=== PATIENT | female | born 1945 | race Caucasian/White ===

== ENCOUNTER → 2016-06-19 | Outpatient (CLI) | payer MEDICARE, BC ==
[~2016-06-19] MED LIST: CHLO25TA2 PO; CLON0.5T PO; CT SWABBABLE VALVE TRANS SET 1 EA INFUS.SET MC ONE; IOHEXOL-350 100 ML VIAL IV ONE; IV NS 0.9% 250 ML IV ONE; METOPROLOL TARTRATE INJ 5 MG/5 ML AMPUL ONE; NEBI10TA2 PO; NITROGLYCERIN 4.9 GM SPRAY ONE; POTASSIUM SUPPLEMENT PO
[2016-06-19 11:32] LABS: ALBUMIN 3.6 g/dL (3.4-5.0); BILIRUBIN,TOTAL 0.2 mg/dL (0.2-1.0); CALCIUM, SERUM 9.2 mg/dL (8.5-10.1); CREATININE 0.8 mg/dL (0.6-1.3); POTASSIUM 3.3 mmol/L (3.5-5.1); TOTAL PROTEIN, SERUM 7.9 g/dL (6.4-8.2)
== END ==
LOC: CT 10:00
PROVIDERS: ATTEND Internal Medicine Interventional Cardiology
DX: I25.10 Atherosclerotic heart disease of native coronary artery without angina pectoris (principal); I10 Essential (primary) hypertension; R06.09 Other forms of dyspnea
CPT/HCPCS: 36415; 75574; 80053; 93005; J3490; J7050; Q9967

== ENCOUNTER 2017-07-30 17:48 | Inpatient (IN) | payer MEDICARE ==
[~2017-07-30] VITALS: Ht 167.6 cm; Wt 94.3 kg
[~2017-07-30 17:48] MED LIST changes: -CT SWABBABLE VALVE TRANS SET 1 EA INFUS.SET MC ONE; -IOHEXOL-350 100 ML VIAL IV ONE; -IV NS 0.9% 250 ML IV ONE; -METOPROLOL TARTRATE INJ 5 MG/5 ML AMPUL ONE; -NITROGLYCERIN 4.9 GM SPRAY ONE
--- NOTE | 2017-07-30 17:48 | NUR ---
CHRISTIANO RA 79 FROM AN URGENT CARE WHEN 12-LEAD EKG SHOWED RAPID AFIB AT 130. PLACED ON MONITOR. BOOKER PT.
[2017-07-30] MEDS ORDERED: IV NS 0.9% 500 ML BAG IV ONE (18:00)
--- NOTE | 2017-07-30 18:08 | NUR ---
LAC #20 IV ACCESS. BLOOD SAMPLE COLLECTED SENT TO LAB
--- NOTE | 2017-07-30 18:09 | NUR ---
URINE SAMPLE COLLECTED SENT TO LAB
[2017-07-30 18:15] LABS: BASOPHILS # (AUTO) 0.1 /CMM (0.0-0.2); BASOPHILS % (AUTO) 0.8 % (0.0-2.0); EOSINOPHILS # (AUTO) 0.2 /CMM (0.0-0.7); EOSINOPHILS % (AUTO) 1.5 % (0.0-6.0); HEMATOCRIT 40 % (33-45); LYMPHOCYTES # (AUTO) 3.1 /CMM (0.8-4.8); LYMPHOCYTES % (AUTO) 25.5 % (20.0-44.0); MEAN CORPUSCULAR HEMOGLOBIN 30 PG (26.0-33.0); MEAN CORPUSCULAR HGB CONC 35 g/dl (31.0-36.0); MEAN CORPUSCULAR VOLUME 84 fL (82-100); MONOCYTES # (AUTO) 0.6 /CMM (0.1-1.30); NEUTROPHILS # (AUTO) 8.1 /CMM (1.8-8.9); NEUTROPHILS % (AUTO) 67.2 % (43.0-81.0); PLATELET COUNT (AUTO) 396 /CMM (150-450); RDW COEFFICIENT OF VARIATION 13.4 (11.5-15.0); RED BLOOD CELL COUNT(AUTO) 4.74 MIL/uL (4.0-5.2); WHITE BLOOD COUNT (AUTO) 12.1 K/uL (4.3-11.0)
[2017-07-30 18:27] LABS: CALCIUM, SERUM 10.6 mg/dL (8.5-10.1); CARBON DIOXIDE 22 mmol/L (21-32); CHLORIDE 101 mmol/L (98-107); CREATININE 0.8 mg/dL (0.6-1.3); GLUCOSE 114 mg/dL (74-106); POTASSIUM 4.2 mmol/L (3.5-5.1); SODIUM SERUM 135 mmol/L (136-145); UREA NITROGEN, BLOOD 21 mg/dL (7-18)
[2017-07-30] MEDS ORDERED: ASPI-1169 PO (18:27)
[2017-07-30 18:40] LABS: B-TYPE NATRIURETIC PEPTIDE 3021 PG/ML (0-125)
[2017-07-30 18:41] LABS: THYROID STIMULATING HORMONE 1.567 uIU/mL (0.358-3.74)
[2017-07-30 18:42] LABS: TROPONIN I < 0.017 ng/mL (0.00-0.056)
[2017-07-30 19:02] LABS: INR 0.95 (0.85-1.15)
--- NOTE | 2017-07-30 19:13 | NUR ---
GAVE REPORT TO [facility] FOR [facility]
[2017-07-30] MEDS ORDERED: DILTIAZEM HCL 25 MG IV ONE (19:15)
[2017-07-30] MEDS ORDERED: DILTIAZEM HCL 25 MG IV IV ONE (19:30)
--- NOTE | 2017-07-30 19:37 | NUR ---
DR.RUBIN NELSON Addendum: 07/30/17 at 1938 by ELIANE COTTON WEIGHER FOR
--- NOTE | 2017-07-30 20:21 | NUR ---
gave report to ATUL Thomas for LENCHO.
[2017-07-30] MEDS ORDERED: clonazePAM 0.5 MG TABLET PO PRN (20:30)
[2017-07-30] MEDS ORDERED: ACETAMINOPHEN 325 MG TABLET PO PRN (20:30)
[2017-07-30] MEDS ORDERED: DILTIAZEM HCL 25 MG IV IV PRN (20:30)
[2017-07-30] MEDS ORDERED: Z GUARD REMEDY 2 OZ OINT TP PRN (20:30)
[2017-07-30] MEDS ORDERED: MAG HYDROX/AL HYDROX/SIMETH 30 ML UDC PO PRN (20:30)
[2017-07-30] MEDS ORDERED: ONDANSETRON HCL/PF 4 MG/2 ML VIAL IVP PRN (20:30)
[2017-07-30] MEDS ORDERED: Medication Not On Formulary EA (Nebivolol Hcl (Bystolic) 20 MG) PO SCH (20:30)
[2017-07-30] MEDS ORDERED: MAGNESIUM HYDROXIDE 30 ML UDC PO PRN (20:30)
[2017-07-30] MEDS ORDERED: HYDROCODONE/APAP 5/325MG 1 EACH TABLET PO PRN (20:30)
--- NOTE | 2017-07-30 20:40 | NUR ---
ATUL/RN NOTES: ADMITTED AN 72 YRS OLD FEMALE FROM E.. VIA [facility] . PT. AMBULATED W/ STEADY GAIT TO ROOM 113-1. ON TELE MONITOR AFIB UNCONTROLLED 89. LAC # 20 SL PATENT AND INTACT W/ NO S/S OF INFECTION/INFILTRATION NOTED. PT.HAS BRUISE UNDER LEFT EYE. CONTINENT OF B/B. RA SAT. 98%. CALL LIGHT W/ REACH. WILL CONTINUE TO MONITOR.
[2017-07-30 20:48] VITALS: BP 123/96
[2017-07-30] MEDS ORDERED: ENOXAPARIN SODIUM 80 MG/0.8 ML DISP.SYRIN SQ SCH (21:00)
[2017-07-31] VITALS: BP 121/65
[2017-07-31 04:00] VITALS: BP 110/55
--- NOTE | 2017-07-31 07:28 | NUR ---
ATUL/RN NOTES: PT. WAS SEEN BY SCALE INSTALLER . NO ACUTE DISTRESS NOTED THIS SHIFT. REPORT GIVEN TO AM NURSE FOR LENCHO.
--- NOTE | 2017-07-31 07:45 | NUR ---
RN INITIAL NOTE RECEIVED PT IN NO ACUTE DISTRESS IN BED. PT IS A/O X 3 AND ABLE TO MAKE NEEDS KNOWN. PT IS ON RA AND TOLERATING WELL WITH O2 SAT @ 95%. PT IS NO C/O ANY SOB, DIFFICULTY BREATHING OR PAIN AT THIS TIME. PT IS ON TELE WITH AFIB ON THE MONITOR. AFIB IS UNCONTROLLED. PT IS ASYMPTOMATIC AT THIS TIME. PT HAS BRP AND IS ABLE TO AMBULATE TO RESTROOM WITH A STEADY GAIT. PT HAS LAC 20G THAT IS CLEAN DRY INTACT AND PATENT WITH SALINE FLUSH. ALL NEEDS MET, ALL ORDERS CARRIED OUT. WILL CONTINUE TO MONITOR PT.
[2017-07-31 08:00] VITALS: BP 139/89
[2017-07-31] MEDS ORDERED: METOPROLOL TARTRATE 25 MG TABLET PO ONE (08:30)
[2017-07-31] MEDS ORDERED: DRONEDARONE HYDROCHLORIDE 400 MG TABLET PO SCH (09:00)
[2017-07-31] MEDS ORDERED: ASPIRIN 81 MG TAB.CHEW PO SCH (09:00)
[2017-07-31 09:23] LABS: BASOPHILS % (AUTO) 0.5 % (0.0-2.0); EOSINOPHILS # (AUTO) 0.3 /CMM (0.0-0.7); EOSINOPHILS % (AUTO) 2.9 % (0.0-6.0); HEMATOCRIT 36 % (33-45); HEMOGLOBIN 12.1 g/dL (11.5-14.8); LYMPHOCYTES # (AUTO) 2.7 /CMM (0.8-4.8); LYMPHOCYTES % (AUTO) 31.4 % (20.0-44.0); MEAN CORPUSCULAR HEMOGLOBIN 29 PG (26.0-33.0); MEAN CORPUSCULAR HGB CONC 34 g/dl (31.0-36.0); MEAN CORPUSCULAR VOLUME 86 fL (82-100); MONOCYTES # (AUTO) 0.6 /CMM (0.1-1.30); MONOCYTES % (AUTO) 6.5 % (2.0-12.0); NEUTROPHILS # (AUTO) 5.1 /CMM (1.8-8.9); NEUTROPHILS % (AUTO) 58.7 % (43.0-81.0); PLATELET COUNT (AUTO) 306 /CMM (150-450); RDW COEFFICIENT OF VARIATION 14.1 (11.5-15.0); RED BLOOD CELL COUNT(AUTO) 4.17 MIL/uL (4.0-5.2); WHITE BLOOD COUNT (AUTO) 8.7 K/uL (4.3-11.0)
[2017-07-31 09:36] LABS: CALCIUM, SERUM 9.1 mg/dL (8.5-10.1); CARBON DIOXIDE 19 mmol/L (21-32); CHLORIDE 104 mmol/L (98-107); CREATININE 0.9 mg/dL (0.6-1.3); GLUCOSE 208 mg/dL (74-106); MAGNESIUM 1.7 mg/dL (1.8-2.4); PHOSPHORUS 4.6 mg/dL (2.5-4.9); POTASSIUM 3.9 mmol/L (3.5-5.1); SODIUM SERUM 137 mmol/L (136-145); UREA NITROGEN, BLOOD 21 mg/dL (7-18)
[2017-07-31 12:00] VITALS: BP 122/69
[2017-07-31] MEDS ORDERED: RIVAROXABAN 10 MG TABLET PO SCH (12:00)
--- NOTE | 2017-07-31 13:30 | NUR ---
RN NOTE PT REMAINS IN NO ACUTE DISTRESS IN BED. PT DID NOT HAVE ANY SIGNIFICANT CHANGE IN CONDITION DURING SHIFT. PT DISCHARGED HOME IN STABLE CONDITION. PT PICKED UP BY FRIEND AND LEFT HOSPITAL IN STABLE CONDITION.
== END 2017-07-31 13:53 | disposition home or self-care (01) | DRG 308 ==
LOC: ER 17:49 → TELE-TD 20:07
PROVIDERS: ADMIT Internal Medicine; ATTEND Internal Medicine
DX: I48.91 Unspecified atrial fibrillation (principal); I50.33 Acute on chronic diastolic (congestive) heart failure; D68.59 Other primary thrombophilia; E11.65 Type 2 diabetes mellitus with hyperglycemia; I11.0 Hypertensive heart disease with heart failure; E78.5 Hyperlipidemia, unspecified; F32.9 Major depressive disorder, single episode, unspecified; F41.9 Anxiety disorder, unspecified; G47.33 Obstructive sleep apnea (adult) (pediatric); Z91.041 Radiographic dye allergy status; Z79.82 Long term (current) use of aspirin; M19.90 Unspecified osteoarthritis, unspecified site; Z98.1 Arthrodesis status; Z68.33 Body mass index [BMI] 33.0-33.9, adult; E66.9 Obesity, unspecified
CPT/HCPCS: 36415; 71045-TC; 80048-TC; 83735-TC; 83880; 84100-TC; 84439-TC; 84443-TC; 84484-TC; 85025-TC; 85730-TC; 87081-TC; 93307-TC; A4606; J1650; J3490; J7030; Z7610

== ENCOUNTER 2019-07-28 16:19 | Emergency (ER) | payer MEDICARE ==
[~2019-07-28] VITALS: Ht 160 cm; Wt 96.6 kg
[~2019-07-28 16:19] MED LIST changes: +ASPI-1169 PO; -CHLO25TA2 PO; -POTASSIUM SUPPLEMENT PO
--- NOTE | 2019-07-28 16:24 | NUR ---
PT BROUGHT FROM HOME FOR ABDOMINAL AND RECTAL DISCOMFORT FEELS CONSTIPATED ABLATION SURGERY DONE RECENTLY. PT ABLE TO GET OUT OF WHEEL CHAIR AND WALK TO [facility]. WILL CONTINUE TO MONITOR.
[2019-07-28 17:04] LABS: BASOPHILS # (AUTO) 0.1 /CMM (0.0-0.2); BASOPHILS % (AUTO) 0.8 % (0.0-2.0); EOSINOPHILS % (AUTO) 1.1 % (0.0-6.0); HEMATOCRIT 39 % (33-45); HEMOGLOBIN 12.7 g/dL (11.5-14.8); LYMPHOCYTES # (AUTO) 1.4 /CMM (0.8-4.8); LYMPHOCYTES % (AUTO) 15.8 % (20.0-44.0); MEAN CORPUSCULAR HGB CONC 33 g/dl (31.0-36.0); MEAN CORPUSCULAR VOLUME 86 fL (82-100); MONOCYTES # (AUTO) 0.6 /CMM (0.1-1.30); MONOCYTES % (AUTO) 6.4 % (2.0-12.0); NEUTROPHILS # (AUTO) 6.6 /CMM (1.8-8.9); NEUTROPHILS % (AUTO) 75.9 % (43.0-81.0); PLATELET COUNT (AUTO) 250 /CMM (150-450); RED BLOOD CELL COUNT(AUTO) 4.45 MIL/uL (4.0-5.2); WHITE BLOOD COUNT (AUTO) 8.7 K/uL (4.3-11.0)
[2019-07-28 17:11] LABS: APPEARANCE,URINE Clear (CLEAR); BILIRUBIN,URINE Negative (NEGATIVE); BLOOD, URINE Trace-intact Ery/uL (NEGATIVE); COLOR,URINE Yellow (YELLOW); KETONES,URINE Negative (NEGATIVE); LEUKOCYTE ESTERASE ,URINE Negative (NEGATIVE); NITRITE, URINE Positive (NEGATIVE); PROTEIN,URINE Negative (NEGATIVE); UGLUCOSE Negative (NEGATIVE); UROBILINOGEN,URINE 0.2 EU/dL (0.2)
[2019-07-28 17:13] LABS: BACTERIA,URINE 3+ /HPF (None Seen); SQUAMOUS EPITHELIAL CELL,UR Few /HPF (None Seen)
--- NOTE | 2019-07-28 17:17 | NUR ---
DELANEY PLACED 16 UPPER SORBIAN 500CC URINARY OUTPUT. PIV PLACED URINE AND LAB SAMPLES SENT FOR PROCESSING. VITAL SIGNS UPDATED
[2019-07-28 17:19] LABS: ALBUMIN 4.1 g/dL (3.4-5.0); BILIRUBIN,DIRECT 0.2 mg/dL (0.0-0.2); BILIRUBIN,TOTAL 0.7 mg/dL (0.2-1.0); CALCIUM, SERUM 9.8 mg/dL (8.5-10.1); POTASSIUM 3.4 mmol/L (3.5-5.1); TOTAL PROTEIN, SERUM 8.2 g/dL (6.4-8.2)
[2019-07-28] MEDS ORDERED: NA PHOS,M-B/NA PHOS,DI-BA 1 EA ENEMA RC ONE ×2 (17:19→17:30)
[2019-07-28] MEDS ORDERED: CEFTRIAXONE 1GM BAG (ER ONLY) 50 ML IV ONE (17:57)
[2019-07-28] MEDS ORDERED: CEFTRIAXONE 1GM BAG (ER ONLY) 1 GM/50 ML PIGGYBACK IV ONE (18:00)
--- NOTE | 2019-07-28 18:06 | NUR ---
DELANEY REMOVED WALKED TO BATHROOM AFTER PT HAD MEDIUM STOOL BROWN WELL FORMED
[2019-07-28 18:32] VITALS: BP 132/73
== END 2019-07-28 18:53 | disposition home or self-care (01) ==
LOC: ER 16:20
DX: R33.9 Retention of urine, unspecified (principal); K59.00 Constipation, unspecified; I10 Essential (primary) hypertension; I48.91 Unspecified atrial fibrillation; F41.9 Anxiety disorder, unspecified; Z98.890 Other specified postprocedural states; Z91.048 Other nonmedicinal substance allergy status; Z60.2 Problems related to living alone; Z79.82 Long term (current) use of aspirin; Z79.899 Other long term (current) drug therapy
CPT/HCPCS: 36415; 51702; 80048; 80076; 81001; 83690; 85025; 87086; 96365; 99284; J0696; 81000-TC

== ENCOUNTER 2019-08-20 18:46 | Emergency (ER) | payer MEDICARE ==
[~2019-08-20] VITALS: Ht 157.5 cm; Wt 93.0 kg
--- NOTE | 2019-08-20 18:54 | NUR ---
Drove self from home, "tripped/fell hit back head and tail bone" Denies LOC, to ER bed 1, hooked to monitor, changed to hospital gown, provided w warm blanket, patient ao x 4, breathing even and unlabored, Dr Hollis at bedside
--- NOTE | 2019-08-20 19:07 | NUR ---
RECEIVED REPORT FROM EDNA JEROME FOR LENCHO, PT IS AAOX4, NOT IN RESPIRATORY DISTRESS, V/S STABLE, KEPT RESTED AND COMFORTABLE, AWAITING CT SCAN PROCEDURE.
--- NOTE | 2019-08-20 19:11 | NUR ---
PT IS WHEELED TO CT SCAN VIA [facility].
[2019-08-20 19:39] VITALS: BP 141/72
--- NOTE | 2019-08-20 19:39 | NUR ---
Patient discharged to home in stable condition. Written and verbal after care instructions given. Patient verbalizes understanding of instruction.
== END 2019-08-20 19:40 | disposition home or self-care (01) ==
LOC: ER 18:50
DX: S09.8XXA Other specified injuries of head, initial encounter (principal); R51 Headache; I10 Essential (primary) hypertension; I48.91 Unspecified atrial fibrillation; E11.9 Type 2 diabetes mellitus without complications; Z98.890 Other specified postprocedural states; Z88.6 Allergy status to analgesic agent; Z60.2 Problems related to living alone; Z79.82 Long term (current) use of aspirin; Z79.899 Other long term (current) drug therapy; W01.0XXA Fall on same level from slipping, tripping and stumbling without subsequent striking against object, initial encounter; Y93.89 Activity, other specified; Y92.89 Other specified places as the place of occurrence of the external cause; Y99.8 Other external cause status
CPT/HCPCS: 70450-TC

== ENCOUNTER 2019-10-25 03:31 | Emergency (ER) | payer MEDICARE ==
[~2019-10-25] VITALS: Ht 157.5 cm; Wt 89.8 kg
[2019-10-25 04:04] VITALS: BP 145/72
--- NOTE | 2019-10-25 04:05 | NUR ---
PATIENT CAME TO ER BED 4 C/O HIGH BLOOD PRESSURE. PATIENT STATES, "I WOKE UP AND STATED THAT SHE HAD FELT THAT HER HEART RATE WAS RACING AND SHE IMMEDIATELY CHECKED HER BLOOD PRESSURE AND SAW THAT IT WAS HIGH". AAOX4. NO SOB. BREATHING EVENLY AND UNLABORED ON ROOM AIR. ANXIOUS.
--- NOTE | 2019-10-25 05:30 | NUR ---
Patient discharged to home in stable condition. Written and verbal after care instructions given. Patient verbalizes understanding of instruction.
== END 2019-10-25 05:31 | disposition home or self-care (01) ==
LOC: ER 03:32
DX: I10 Essential (primary) hypertension (principal); F41.9 Anxiety disorder, unspecified; R07.89 Other chest pain; I48.91 Unspecified atrial fibrillation; Z98.890 Other specified postprocedural states; Z91.048 Other nonmedicinal substance allergy status; Z60.2 Problems related to living alone; Z79.82 Long term (current) use of aspirin; Z79.899 Other long term (current) drug therapy